=== PATIENT | female | born 1985 | race Caucasian/White ===

== ENCOUNTER 2016-05-19 23:11 | Emergency (ER) | payer SELFPAY ==
[2016-05-20] MEDS ORDERED: LIDOCAINE 2% VISC 15 ML UDC ONE (01:28)
[2016-05-20] MEDS ORDERED: ALU/MAG/SIM 30 ML UDC ONE (01:28)
[2016-05-20] MEDS ORDERED: KETOROLAC 30 MG/ML VIAL ONE (01:54)
== END 2016-05-20 02:46 | disposition home or self-care (01) ==
LOC: ER 23:11
CPT/HCPCS: 36415; 71010; 80053; 82550; 82553; 83735; 84484; 85025; 85610; 85730; 93005; 96374